=== PATIENT | male | born 1995 | race Caucasian/White ===

== ENCOUNTER 2018-06-24 17:11 | Emergency (ER) | payer SELFPAY ==
[2018-06-24 17:20] VITALS: BP 133/88
--- NOTE | 2018-06-24 17:43 | RADIOLOGY REPORT (SQ) ---
EXAM DESCRIPTION: WRIST RIGHT 3 VIEWS COMPLETED DATE/TIME: 06/24/2018 5:33 pm REASON FOR STUDY: Fell and injured wrist COMPARISON: None. NUMBER OF VIEWS: Three views. TECHNIQUE: AP, lateral, and oblique radiographic images acquired of the right wrist. LIMITATIONS: None. FINDINGS: MINERALIZATION: Normal. BONES: No acute fracture or dislocation. No worrisome bone lesions. Normal alignment. SOFT TISSUES: No soft tissue swelling. No foreign body. OTHER: No other significant finding. IMPRESSION: NEGATIVE STUDY OF THE RIGHT WRIST. NO RADIOGRAPHIC EVIDENCE OF ACUTE INJURY. TECHNICAL DOCUMENTATION: JOB ID: [id number] All Rights Reserved Reading location - IP/workstation name: [email or web address]
[2018-06-24] MEDS ORDERED: IBUPROFEN 600 MG TABLET PO ONE (17:47)
--- NOTE | 2018-06-24 17:53 | ER Document Report ---
ED Hand/Wrist Injury - General Chief Complaint: Wrist Injury Stated Complaint: RIGHT WRIST INJURY Time Seen by Provider: 06/24/18 17:40 Mode of Arrival: Ambulatory Information source: Patient Notes: 22-year-old male presents to ED for complaint of right wrist pain on the radial side. He states that he fell landing on the right hand about 4 PM. There is no obvious deformity or swelling. There is no obvious bruising noted. Patient is alert oriented respirations regular and unlabored at this time. Patient states he has not had any pain medication since it happened. TRAVEL OUTSIDE OF THE [place] IN LAST 30 DAYS: No - HPI Injury to: Wrist - Radial side Onset: This afternoon Where: Outdoors Timing: Still present Quality of pain: Achy, Sharp Severity: Moderate Pain Level: 4 Context: Fall. denies: Swelling - Related Data Allergies/Adverse Reactions: codeine [Codeine] Allergy (Verified 11/26/14 13:44) hydrocodone [Hydrocodone] Allergy (Verified 11/26/14 13:44) wheat [Wheat] Allergy (Verified 11/26/14 13:44) Past Medical History - General Information source: Patient - Social History Smoking Status: Current Every Day Smoker Cigarette use (# per day): Yes - ppd Chew tobacco use (# tins/day): No Smoking Education Provided: Yes Frequency of alcohol use: Rare Drug Abuse: Marijuana Occupation: Construction Family History: CAD, Hyperlipidemia, Hypertension Patient has suicidal ideation: No Patient has homicidal ideation: No - Past Medical History Cardiac Medical History: Reports: None Pulmonary Medical History: Reports: Hx Asthma EENT Medical History: Reports: None Neurological Medical History: Reports: None Endocrine Medical History: Reports: None Renal/ Medical History: Reports: None Malignancy Medical History: Reports None GI Medical History: Reports: Hx Gastroesophageal Reflux Disease Musculoskeletal Medical History: Reports Hx Musculoskeletal Trauma - right ankle sprain Skin Medical History: Reports None Psychiatric Medical History: Reports: None Traumatic Medical History: Reports: None Infectious Medical History: Reports: None Past Surgical History: Reports: Hx Adenoidectomy, Hx Tonsillectomy - Immunizations Immunizations up to date: Yes Hx Diphtheria, Pertussis, Tetanus Vaccination: Yes - 2018 Review of Systems - Review of Systems Constitutional: No symptoms reported EENT: No symptoms reported Cardiovascular: No symptoms reported Respiratory: No symptoms reported Gastrointestinal: No symptoms reported Genitourinary: No symptoms reported Male Genitourinary: No symptoms reported Musculoskeletal: No symptoms reported - Right wrist pain and injury radial side Skin: No symptoms reported Hematologic/Lymphatic: No symptoms reported Neurological/Psychological: No symptoms reported -: Yes All other systems reviewed and negative Physical Exam - Vital signs Vitals: Temp Pulse Resp BP Pulse Ox 97.8 F 90 17 133/88 H 98 06/24/18 17:20 06/24/18 17:20 06/24/18 17:20 06/24/18 17:20 06/24/18 17:20 Interpretation: Normal - General General appearance: Appears well, Alert - HEENT Head: Normocephalic, Atraumatic Eyes: Normal Pupils: PERRL - Respiratory Respiratory status: No respiratory distress Chest status: Nontender Breath sounds: Normal Chest palpation: Normal - Cardiovascular Rhythm: Regular Heart sounds: Normal auscultation Murmur: No - Abdominal Inspection: Normal Distension: No distension Bowel sounds: Normal Tenderness: Nontender Organomegaly: No organomegaly - Back Back: Normal, Nontender - Extremities General upper extremity: Normal inspection, Nontender, Normal color, Normal ROM , Normal temperature General lower extremity: Normal inspection, Nontender, Normal color, Normal ROM , Normal temperature, Normal weight bearing. No: Pepito's sign Wrist: Tender, Axial load of thumb pain, Limited ROM - Radial side to pain. No : Abrasion, Deformity, Dislocation, Ecchymosis, Instability, Laceration, Navicular tenderness - Neurological Neuro grossly intact: Yes Cognition: Normal Orientation: AAOx4 [place] Coma Scale Eye Opening: Spontaneous Christian Coma Scale Verbal: Oriented [place] Coma Scale Motor: Obeys Commands Christian Coma Scale Total: 15 Speech: Normal Motor strength normal: LUE, RUE, LLE, RLE Sensory: Normal - Psychological Associated symptoms: Normal affect, Normal mood - Skin Skin Temperature: Warm Skin Moisture: Dry Skin Color: Normal Course - Re-evaluation Re-evalutation: 06/24/18 18:45 Went to give patient results of the x-ray and he was no longer in the waiting room. I left a message on his telephone to please call me so I could give him his results. Checked the waiting room and I did not see the patient in the waiting room. - Vital Signs Vital signs: Temp Pulse Resp BP Pulse Ox 97.8 F 90 17 133/88 H 98 06/24/18 17:20 06/24/18 17:20 06/24/18 17:20 06/24/18 17:20 06/24/18 17:20 - Diagnostic Test Radiology reviewed: Image reviewed, Reports reviewed Discharge - Discharge Clinical Impression: Wrist injury Qualifiers: Encounter type: initial encounter Laterality: right Qualified Code(s): S69.91XA - Unspecified injury of right wrist, hand and finger(s), initial encounter Disposition: ELOPED
== END 2018-06-24 18:44 | disposition left against medical advice (07) ==
LOC: ER 17:11
DX: S69.91XA Unspecified injury of right wrist, hand and finger(s), initial encounter (principal); W19.XXXA Unspecified fall, initial encounter; F17.210 Nicotine dependence, cigarettes, uncomplicated; Z88.6 Allergy status to analgesic agent
CPT/HCPCS: 99281

== ENCOUNTER 2019-07-20 16:37 | Emergency (ER) | payer SELFPAY ==
[2019-07-20] MEDS ORDERED: PIPERACILLIN/TAZOBACTAM 4.5 GM VIAL IV ONE (20:25)
[2019-07-20] MEDS ORDERED: VANCOMYCIN HCL INJ 1000 MG VIAL IV ONE (20:25)
--- NOTE | 2019-07-20 20:25 | RADIOLOGY REPORT (SQ) ---
EXAM DESCRIPTION: US EXTREMITY VEINS BILATERAL COMPLETED DATE/TME: 07/20/2019 17:26 CLINICAL HISTORY: 23 years, Male, swelling, pain from knees to groin COMPARISON: None. TECHNIQUE: 57 images, bilateral LIMITATIONS: None. FINDINGS: No evidence of acute deep venous thrombosis.. Normal compressibility augmentation. IMPRESSION: No evidence of deep venous thrombosis, bilaterally, central circulation through popliteal. copyright 2010 [employer]- All Rights Reserved
--- NOTE | 2019-07-20 20:45 | ER Document Report ---
ED General - General Chief Complaint: Ankle Pain Stated Complaint: LEG PAIN/SWELLING Time Seen by Provider: 07/20/19 17:23 TRAVEL OUTSIDE OF THE [place] IN LAST 30 DAYS: No - Related Data Allergies/Adverse Reactions: codeine [Codeine] Allergy (Verified 11/26/14 13:44) hydrocodone [Hydrocodone] Allergy (Verified 11/26/14 13:44) wheat [Wheat] Allergy (Verified 11/26/14 13:44) Past Medical History - Social History Smoking Status: Current Every Day Smoker Chew tobacco use (# tins/day): No Frequency of alcohol use: None Drug Abuse: Marijuana Family History: CAD, Hyperlipidemia, Hypertension Patient has suicidal ideation: No Patient has homicidal ideation: No Pulmonary Medical History: Reports: Hx Asthma Renal/ Medical History: Denies: Hx Peritoneal Dialysis GI Medical History: Reports: Hx Gastroesophageal Reflux Disease Musculoskeletal Medical History: Reports Hx Musculoskeletal Trauma - right ankle sprain Past Surgical History: Reports: Hx Adenoidectomy, Hx Tonsillectomy - Immunizations Immunizations up to date: Yes Hx Diphtheria, Pertussis, Tetanus Vaccination: Yes - 2017 Physical Exam - Vital signs Vitals: Temp Pulse Resp BP Pulse Ox 98.6 F 113 H 20 138/85 H 95 07/20/19 16:56 07/20/19 16:56 07/20/19 16:56 07/20/19 16:56 07/20/19 16:56 - Notes Notes: Patient presents emerge department planing bilateral leg pain that started last night. Denies any trauma falls heavy lifting or overexertion. The right leg resolved but the leg pain persisted and he is not able to weight-bear on it. Reports that he noticed redness over the lateral aspect of the left ankle today had the same lesion over the lateral aspect of the right ankle last night that resolved he denies any fevers cough chest pain shortness of breath night sweats recent surgeries bug bites or history of drug abuse or drug injection no history of gout patient does report his up the yard working yesterday and sustained a few ant bites on his hand and one on his upper left leg and right lower leg but has never had significant reactions to these in the past denies taking any a spirin Tylenol or Motrin today His medical history is negative for diabetes hypertension or heart disease. Social history does smoke and drink Review of systems pertinent positives and negatives in HPI otherwise all the systems were reviewed and acutely negative 1 PHYSICIAN EXAM -vital signs are noted triage note and note from triage reviewed GENERAL: Well-appearing, well-nourished and in mild distress from pain HEAD: Atraumatic, normocephalic. EYES: Pupils equal round and reactive to light, extraocular movements intact, sclera anicteric, conjunctiva are normal. ENT: nares patent, oropharynx clear without exudates. Moist mucous membranes. Very poor dentition with several caries but no definite abscess NECK: supple without lymphadenopathy LUNGS: Breath sounds clear to auscultation bilaterally and equal. No wheezes rales or rhonchi. HEART: Rapid irregular with a 2/6 soft ejection murmur ABDOMEN: Soft, nontender, normoactive bowel sounds. Liver and spleen not enlarged EXTREMITIES: No deformity, upper extremities are nontender see no evidence of a track skaggs the right lower extremity the hip knee and ankle are nontender he has no calf or thigh tenderness or palpable cords, there is no edema of the foot he has good sensation to the first dorsal webspace. He has several superficial abrasions over the beds from trimming his nails in the area does not involve the entire toe. There is no subungual hematoma. A few papular lesions over the medial aspect of the right ankle and there is a red streak up the medial aspect of the calf about midportion -left lower extremity the hip is nontender he is got no tenderness on the medial aspect thigh the knee is nontender there is no tenderness in the posterior aspect of the knee. Minimal tenderness along the posterior calf but no definite cords. There is redness of the medial aspect of the calf into the medial aspect of the thigh. But the lesion is not continuous I discussed +1 swelling of the foot. He is got significant tenderness over the lateral aspect of the ankle with redness and increased warmth in the area no tenderness medially. I do not appreciate any lesions on his foot or between his toes he is got a small macular lesion over the proximal and lateral portion of the calf no surrounding redness NEUROLOGICAL: No focal neurological deficits. Moves all extremities spontaneously and on command. PSYCH: Normal mood, normal affect. SKIN: Warm, Dry, normal turgor, no rashes or lesions noted. BACK-nontender in the midline there is no pain with sitting and no CVA tenderness Differential diagnosis includes local reaction cellulitis lymphangitis endocarditis Course - Re-evaluation Re-evalutation: 07/20/19 22:29 ED patient is remained stable blood culture obtained he was given vancomycin and Zosyn the redness was watchers also given a tetanus shot. He was offered pain medicines but did not feel he needed any I discussed the case at length with the hospitalist Dr. encinas, including laboratory studies and clinical findings. He felt patient can be discharged home in antibiotics with recheck in 24 hours and then admission if not improving. Discussed this with the patient and family and they are comfortable with that. Plan at this time will be to discharge patient home with a prescription for K eflex and Bactrim. He given the first dose now. We will bring him back in roughly 30 hours for recheck. Ice to keep the leg elevated. Return for fevers greater than 101 if the redness extends up his leg develops any chest pain or shortness of breath 07/20/19 22:30 07/20/19 22:35 At this time there is no indication for admission. I have discussed the findings with patient/family with return precautions and follow-up recommendations. Verbal discharge instructions given at the bedside and op portunity for questions given. Medication warnings were given if indicated. Patient is in agreement with this plan and has verbalized understanding of return precautions and the need for primary care follow-up as directed.. Emphasized the need to return on Saturday morning for recheck or sooner if he develops fevers greater than 101 or if the redness starts extending outside the areas marked - Vital Signs Vital signs: Temp Pulse Resp BP Pulse Ox 98.6 F 113 H 20 138/85 H 95 07/20/19 16:56 07/20/19 16:56 07/20/19 16:56 07/20/19 16:56 07/20/19 16:56 - Laboratory Result Diagrams: 07/20/19 21:03 07/20/19 21:03 Laboratory results interpreted by me: 07/20/19 07/20/19 07/20/19 21:03 21:03 21:03 WBC 12.6 H Absolute Neuts (auto) 9.0 H Creatine Kinase 173 H C-React Prot High Sens 10.9021 H Discharge - Discharge Clinical Impression: Cellulitis of left ankle, Cellulitis of right foot Condition: Good Disposition: HOME, SELF-CARE Additional Instructions: Cellulitis You have an infection of your skin and underlying soft tissues called cellulitis. This is due to bacteria, which can enter through any break in the skin, or even through an irritated hair follicle. Untreated, cellulitis will usually worsen. Antibiotics are required. Usually, warm packs or warm soaks, and elevation of the infected area are recommended. You should start getting better within 24 to 36 hours. Most infections respond quickly to the right medication. Follow-up care is important, however, to check for abscess (boil) formation, unsuspected foreign body, or resistant infection. If you develop fever, chills, or if the area of infection is becoming rapidly more swollen or painful, call the doctor at once. Please review the discharge instructions, they will tell you about your disease/injury and what you need to return to the ED for Return to the ED on Saturday morning for recheck or sooner if you develop fevers greater than 101 or if the redness on your left ankle moves up your l leg Stay off the left leg is much as possible and keep it elevated 2-3 times a day If you decide to take the Ultram it may cause drowsiness so be careful with the crutches otherwise you can take Tylenol or Motrin for pain Prescriptions: Tramadol HCl [Ultram 50 mg Tablet] 50 mg PO Q4HP PRN #12 tab PRN Reason: Amoxicillin 1 tab PO BID #14 tab Sulfamethoxazole/Trimethoprim [Bactrim Ds Tablet] 1 each PO BID #14 tablet
[2019-07-20] MEDS ORDERED: DIPH/PERTUSS(ACELL)/TETANUS VAC/PF 0.5 ML SYR (>=10YO) IM ONE (21:12)
[2019-07-20 21:15] LABS: ABSOLUTE BASOPHILS # (AUTO) 0.1 10^3/uL (0.0-0.2); ABSOLUTE EOSINOPHILS # (AUTO) 0.2 10^3/uL (0.0-0.6); ABSOLUTE LYMPHOCYTES (AUTO) 2.2 10^3/uL (0.5-4.7); ABSOLUTE MONOCYTES (AUTO) 1.2 10^3/uL (0.1-1.4); BASOPHILS % (AUTO) 0.7 % (0-2); EOSINOPHILS % (AUTO) 1.2 % (0-6); HEMATOCRIT 41.9 % (37.9-51.0); HEMOGLOBIN 14.4 g/dL (13.5-17.0); LYMPHOCYTES % (AUTO) 17.3 % (13-45); MEAN CORPUSCULAR HEMOGLOBIN 31.5 pg (27.0-33.4); MEAN CORPUSCULAR HGB CONC 34.4 g/dL (32.0-36.0); MEAN CORPUSCULAR VOLUME 92 fl (80-97); MONOCYTES % (AUTO) 9.5 % (3-13); PLATELET COUNT 203 10^3/uL (150-450); RED BLOOD COUNT 4.57 10^6/uL (4.35-5.55); RED CELL DISTRIBUTION WIDTH 12.7 % (11.5-14.0); SEGMENTED NEUTROPHILS % (AUTO) 71.3 % (42-78); TOTAL CELLS COUNTED % (AUTO) 100 %; WHITE BLOOD COUNT 12.6 10^3/uL (4.0-10.5)
--- NOTE | 2019-07-20 21:15 | RADIOLOGY REPORT (SQ) ---
EXAM DESCRIPTION: CLINICAL HISTORY: 23 years Male, Fever COMPARISON: None. FINDINGS: Cardiomediastinal silhouette is not enlarged. Lungs appear hyperinflated. Not clear if abnormal or simply a very deep inspiratory effort. No suspicious acute lung pleural bone abnormalities. IMPRESSION: No obvious acute findings. Nonspecific finding of hyperinflation which may be real or caused by very deep inspiratory effort
--- NOTE | 2019-07-20 21:23 | RADIOLOGY REPORT (SQ) ---
EXAM DESCRIPTION: [facility]Lex: XR ANKLE 2 VIEWS BILATERAL CLINICAL HISTORY: 23 years Male, Pain COMPARISON: None. FINDINGS: Left, 2 views: Negative for acute fracture, dislocation, or radiopaque foreign body. Right, 2 views: There is an ossific density at the distal margin of the lateral malleolus, consistent with chronic ossicle. Cannot exclude an old avulsion injury. No acute fractures. Alignment is anatomic. IMPRESSION: 1. No acute findings. 2. Possible old lateral malleolar avulsion injury. Please correlate with clinical findings.
[2019-07-20 21:39] LABS: ALBUMIN 4.6 g/dL (3.5-5.0); ALKALINE PHOSPHATASE 64 U/L (38-126); ANION GAP 11 (5-19); ASPARTATE AMINO TRANSFERASE 27 U/L (17-59); BILIRUBIN,DIRECT 0.2 mg/dL (0.0-0.4); BILIRUBIN,TOTAL 0.9 mg/dL (0.2-1.3); BLOOD UREA NITROGEN 13 mg/dL (7-20); CALCIUM 9.6 mg/dL (8.4-10.2); CARBON DIOXIDE 28 mmol/L (22-30); CHLORIDE 99 mmol/L (98-107); CREATINE KINASE 173 U/L (55-170); GLUCOSE 84 mg/dL (75-110); POTASSIUM 3.8 mmol/L (3.6-5.0); TOTAL PROTEIN 7.5 g/dL (6.3-8.2)
[2019-07-20 21:51] LABS: ERYTHROCYTE SEDIMENTATION RATE 9 mm/hr (0-15)
[2019-07-20] MEDS ORDERED: SULFAMETHOXAZOLE/TRIMETHOPRIM 800-160 MG TABLET PO ONE (22:36)
[2019-07-21] MEDS ORDERED: DIPHENHYDRAMINE HCL 50 MG/ML VIAL IV ONE (02:14)
[2019-07-21] MEDS ORDERED: METHYLPREDNISOLONE INJ 125 MG/2 ML SDV IV ONE (02:57)
[2019-07-21 03:31] VITALS: BP 128/67
== END 2019-07-21 03:31 | disposition home or self-care (01) ==
LOC: ER 16:37
DX: L03.116 Cellulitis of left lower limb (principal); L03.115 Cellulitis of right lower limb; M25.579 Pain in unspecified ankle and joints of unspecified foot; M79.89 Other specified soft tissue disorders; F17.200 Nicotine dependence, unspecified, uncomplicated; J45.909 Unspecified asthma, uncomplicated
CPT/HCPCS: 99284; 96375; 96365; 96368; 36415; 87040; 82962; 82550; 83605; 85025; 85652; 80053; 86141; 93970; 71045; 73600; 90715; J1200; J2930; J3370; J2543

== ENCOUNTER 2019-07-22 12:26 | Emergency (ER) | payer SELFPAY ==
--- NOTE | 2019-07-22 13:18 | ER Document Report ---
ED Medical Screen (RME) - General Chief Complaint: Leg Pain Stated Complaint: LEG AND ANKLE PAIN Time Seen by Provider: 07/22/19 13:11 Mode of Arrival: Wheelchair Information source: Patient Notes: Patient presents with left foot and leg pain for the past 2 days. Patient was seen here 2 days ago and diagnosed with cellulitis. Patient was given doses of IV antibiotics and advised to come back in 24 hours for wound recheck. Patient states he did not get the antibiotics filled until this morning and is on only one dose of the medication this morning. Patient with erythema that extends b eyond the area that was demarcated on his left foot. Patient does complain of increased pain. Patient denies any fever. I have greeted and performed a rapid initial assessment of this patient. A c omprehensive ED assessment and evaluation of the patient, analysis of test results and completion of the medical decision making process will be conducted by additional ED providers. TRAVEL OUTSIDE OF THE [place] IN LAST 30 DAYS: No - Related Data Allergies/Adverse Reactions: codeine [Codeine] Allergy (Verified 07/22/19 13:10) hydrocodone [Hydrocodone] Allergy (Verified 07/22/19 13:10) wheat [Wheat] Allergy (Verified 07/22/19 13:10) Past Medical History - Social History Drug Abuse: Marijuana Pulmonary Medical History: Reports: Hx Asthma Renal/ Medical History: Denies: Hx Peritoneal Dialysis GI Medical History: Reports: Hx Gastroesophageal Reflux Disease Musculoskeltal Medical History: Reports Hx Musculoskeletal Trauma - right ankle sprain Past Surgical History: Reports: Hx Adenoidectomy, Hx Tonsillectomy - Immunizations Immunizations up to date: Yes Hx Diphtheria, Pertussis, Tetanus Vaccination: Yes - 2018 Physical Exam - Vital signs Vitals: Temp Pulse Resp BP Pulse Ox 98.4 F 94 16 120/72 97 07/22/19 13:05 07/22/19 13:05 07/22/19 13:05 07/22/19 13:05 07/22/19 13:05 - General General appearance: Alert Notes: Left foot tenderness, erythema and swelling Course - Vital Signs Vital signs: Temp Pulse Resp BP Pulse Ox 98.4 F 94 16 120/72 97 07/22/19 13:05 07/22/19 13:05 07/22/19 13:05 07/22/19 13:05 07/22/19 13:05
[2019-07-22 13:57] LABS: ABSOLUTE EOSINOPHILS # (AUTO) 0.2 10^3/uL (0.0-0.6); ABSOLUTE NEUT (AUTO) 8.8 10^3/uL (1.7-8.2); BASOPHILS % (AUTO) 0.3 % (0-2); EOSINOPHILS % (AUTO) 1.1 % (0-6); HEMATOCRIT 37.3 % (37.9-51.0); HEMOGLOBIN 12.7 g/dL (13.5-17.0); LYMPHOCYTES % (AUTO) 28.6 % (13-45); MEAN CORPUSCULAR HEMOGLOBIN 31.3 pg (27.0-33.4); MEAN CORPUSCULAR HGB CONC 34.2 g/dL (32.0-36.0); MEAN CORPUSCULAR VOLUME 92 fl (80-97); MONOCYTES % (AUTO) 7.2 % (3-13); PLATELET COUNT 195 10^3/uL (150-450); RED BLOOD COUNT 4.08 10^6/uL (4.35-5.55); RED CELL DISTRIBUTION WIDTH 13.1 % (11.5-14.0); SEGMENTED NEUTROPHILS % (AUTO) 62.8 % (42-78); TOTAL CELLS COUNTED % (AUTO) 100 %
[2019-07-22 14:15] LABS: ALBUMIN 4.1 g/dL (3.5-5.0); ALKALINE PHOSPHATASE 51 U/L (38-126); ANION GAP 8 (5-19); ASPARTATE AMINO TRANSFERASE 21 U/L (17-59); BILIRUBIN,DIRECT 0.2 mg/dL (0.0-0.4); BILIRUBIN,TOTAL 0.2 mg/dL (0.2-1.3); BLOOD UREA NITROGEN 16 mg/dL (7-20); CALCIUM 9.5 mg/dL (8.4-10.2); CARBON DIOXIDE 31 mmol/L (22-30); CHLORIDE 102 mmol/L (98-107); GLUCOSE 98 mg/dL (75-110); TOTAL PROTEIN 6.7 g/dL (6.3-8.2)
[2019-07-22] MEDS ORDERED: CLINDAMYCIN 900 MG/D5W RTU 900 MG/50 ML RTUPB IV ONE (16:48)
--- NOTE | 2019-07-22 17:42 | ER Document Report ---
ED General - General Chief Complaint: Wound Recheck Stated Complaint: LEG AND ANKLE PAIN Time Seen by Provider: 07/22/19 13:11 Mode of Arrival: Wheelchair TRAVEL OUTSIDE OF THE [place] IN LAST 30 DAYS: No - HPI Onset: Other Onset/Duration: Gradual Quality of pain: No pain Severity: Moderate Context: 23 year old male is following up from visit here 2 days ago. Treated at that time for cellulitis which has improved. Left lateral ankle has some mild redness but no pain at this time. He tells me he can walk on it without any pain and some redness on left medial leg is completely gone. Additionally while both legs hurt at last visist, neither hurt at this time. He is unsure how this started. Perhaps an insect bite. Exacerbated by: Denies Relieved by: Denies - Related Data Allergies/Adverse Reactions: codeine [Codeine] Allergy (Verified 07/22/19 13:10) hydrocodone [Hydrocodone] Allergy (Verified 07/22/19 13:10) wheat [Wheat] Allergy (Verified 07/22/19 13:10) Past Medical History - General Information source: Patient - Social History Smoking Status: Current Every Day Smoker Drug Abuse: Marijuana Family History: CAD, Hyperlipidemia, Hypertension Patient has suicidal ideation: No Patient has homicidal ideation: No Pulmonary Medical History: Reports: Hx Asthma Renal/ Medical History: Denies: Hx Peritoneal Dialysis GI Medical History: Reports: Hx Gastroesophageal Reflux Disease Musculoskeletal Medical History: Reports Hx Musculoskeletal Trauma - right ankle sprain Past Surgical History: Reports: Hx Adenoidectomy, Hx Tonsillectomy - Immunizations Immunizations up to date: Yes Hx Diphtheria, Pertussis, Tetanus Vaccination: Yes - 2017 Review of Systems - Review of Systems Constitutional: No symptoms reported EENT: No symptoms reported Cardiovascular: No symptoms reported Respiratory: No symptoms reported Gastrointestinal: No symptoms reported Genitourinary: No symptoms reported Male Genitourinary: No symptoms reported Musculoskeletal: See HPI, Ankle swelling Skin: No symptoms reported Hematologic/Lymphatic: No symptoms reported Neurological/Psychological: No symptoms reported Physical Exam - Vital signs Vitals: Temp Pulse Resp BP Pulse Ox 98.4 F 94 16 120/72 97 07/22/19 13:05 07/22/19 13:05 07/22/19 13:05 07/22/19 13:05 07/22/19 13:05 Interpretation: Normal - General General appearance: Appears well, Alert - HEENT Head: Normocephalic, Atraumatic Eyes: Normal Pupils: PERRL - Respiratory Respiratory status: No respiratory distress Chest status: Nontender Breath sounds: Normal Chest palpation: Normal - Cardiovascular Rhythm: Regular Heart sounds: Normal auscultation Murmur: No - Abdominal Inspection: Normal Distension: No distension Bowel sounds: Normal Tenderness: Nontender Organomegaly: No organomegaly - Back Back: Normal, Nontender - Extremities General upper extremity: Normal inspection, Nontender, Normal color, Normal ROM, Normal temperature General lower extremity: Normal inspection, Nontender, Normal ROM, Normal temperature, Normal weight bearing, Other - left lateral malleolus area has sts and some mild redness. Not tender. Ankle joint is mobile without pain.. No: Pepito's sign - Neurological Neuro grossly intact: Yes Cognition: Normal Orientation: AAOx4 Man[place] Coma Scale Eye Opening: Spontaneous [place] Coma Scale Verbal: Oriented [place] Coma Scale Motor: Obeys Commands Manter Coma Scale Total: 15 Speech: Normal Motor strength normal: LUE, RUE, LLE, RLE Sensory: Normal - Psychological Associated symptoms: Normal affect, Normal mood - Skin Skin Temperature: Warm Skin Moisture: Dry Skin Color: Normal Course - Re-evaluation Re-evalutation: 07/22/19 17:41 MDM 23 year old with cellulitis is better than the other day though WBC count is up a bit. Importantly no myalgias or arhthralgias. Feel if 10 days of treatment should be well and to follow up if any pain or redness persists. Explained to pt and he expressed understanidng - Vital Signs Vital signs: Temp Pulse Resp BP Pulse Ox 98.4 F 94 16 120/72 97 07/22/19 13:05 07/22/19 13:05 07/22/19 13:05 07/22/19 13:05 07/22/19 13:05 - Laboratory Result Diagrams: 07/22/19 13:40 07/22/19 13:40 Laboratory results interpreted by me: 07/22/19 07/22/19 13:40 13:40 WBC 14.0 H RBC 4.08 L Hgb 12.7 L Hct 37.3 L Absolute Neuts (auto) 8.8 H Carbon Dioxide 31 H Discharge - Discharge Clinical Impression: Cellulitis of left ankle Condition: Good Disposition: HOME, SELF-CARE Instructions: Family Physicians / Practices Additional Instructions: Keep the left foot elevated. Take your medicine as perscribed. Take your medicine as directed. Please return here for any problems or any concerns.
[2019-07-22 18:35] VITALS: BP 120/76
== END 2019-07-22 18:45 | disposition home or self-care (01) ==
LOC: ER 12:26
DX: L03.116 Cellulitis of left lower limb (principal); M25.572 Pain in left ankle and joints of left foot; F17.200 Nicotine dependence, unspecified, uncomplicated; Z88.6 Allergy status to analgesic agent
CPT/HCPCS: 99283; 36415; 85025; 80053; J3490